=== PATIENT | male | born 1940 | race Caucasian/White ===

== ENCOUNTER 2019-03-06 17:12 | Observation (INO) | payer MEDICARE ==
[~2019-03-06] VITALS: Ht 190.5 cm; Wt 66.4 kg
--- NOTE | 2019-03-06 17:12 | NUR ---
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 CARDIAC, NIBP & SPO2 MONITORS IN PLACE.
[2019-03-06] MEDS ORDERED: SODIUM CHLORIDE FLUSH 10ML SYR IVF ONE (17:30)
[2019-03-06 17:47] LABS: BASOPHILS # (AUTO) 0.03 x10^3/uL (0-0.1); BASOPHILS % (AUTO) 0 % (0-1); EOSINOPHILS # (AUTO) 0.01 x10^3/uL (0-0.4); EOSINOPHILS % (AUTO) 0 % (1-7); LYMPHOCYTES # (AUTO) 1.11 x10^3/uL (1-3.4); LYMPHOCYTES % (AUTO) 13 % (22-44); MD NO; MEAN CORPUSCULAR HEMOGLOBIN 33.7 pg (27.5-34.5); MEAN CORPUSCULAR HGB CONC 33.4 g/dL (33.2-36.2); MEAN CORPUSCULAR VOLUME 101.1 fL (81-97); MEAN PLATELET VOLUME 8.3 fL (7.4-10.4); MONOCYTES # (AUTO) 0.56 x10^3/uL (0.2-0.8); MONOCYTES % (AUTO) 6 % (2-9); NEUTROPHILS # (AUTO) 7.14 x10^3/uL (1.8-6.8); NEUTROPHILS % (AUTO) 81 % (42-75); PLATELET COUNT 276 x10^3/uL (130-400); RED BLOOD COUNT 4.08 x10^6/uL (4.38-5.82); RED CELL DISTRIBUTION WIDTH 14.5 % (9.4-14.8)
[2019-03-06 17:56] LABS: INTERNATIONAL NORMALIZED RATIO 1.04 (0.93-1.1); PROTHROMBIN TIME 10.9 Seconds (9.6-11.5)
[2019-03-06 17:57] LABS: ALANINE AMINOTRANSFERASE 35 U/L (12-78); ALBUMIN 3.8 g/dL (3.4-5.0); ANION GAP 6 mmol/L (5-15); CALCIUM 9.2 mg/dL (8.5-10.1); CHLORIDE 101 mmol/L (98-107); CREATININE 0.97 mg/dL (0.7-1.3)
--- NOTE | 2019-03-06 18:00 | NUR ---
PT ON GURNEY AWAKE & WATCHING TV, RESPONDS APPROP TO STAFF, NAD, COMFORT MEASURES PROVIDED, CALL LIGHT WITHIN REACH. PT TO CT
[2019-03-06 18:01] LABS: ALKALINE PHOSPHATASE 113 U/L (45-117); BILIRUBIN,TOTAL 0.8 mg/dL (0.2-1.0); CREATINE KINASE, TOTAL 576 U/L (39-308); TOTAL PROTEIN 8.4 g/dL (6.4-8.2)
[2019-03-06 18:08] LABS: MICROSCOPIC INDICATED
[2019-03-06 18:09] LABS: CULTURE INDICATED? YES
[2019-03-06] MEDS ORDERED: ATORVASTATIN (18:15)
[2019-03-06] MEDS ORDERED: CALCIUM (18:15)
[2019-03-06] MEDS ORDERED: TRAZODONE (18:15)
--- NOTE | 2019-03-06 19:06 | NUR ---
REPORT GIVEN TO SAIMA
--- NOTE | 2019-03-06 19:15 | NUR ---
REPORT RECEIVED AND CARE ASSUMED. PT USING URINAL AT THIS TIME. NO S/S OF ACUTE DISTRESS. WILL ATTEMPT TO AMBULATE WHEN ABLE.
--- NOTE | 2019-03-06 19:20 | NUR ---
WANDA [phone]
--- NOTE | 2019-03-06 19:30 | NUR ---
PT UP TO BR WITH ASSIST. PT DOES APPEAR TO HAVE MILD DIFFICULTY. PT DOES HAVE PERIODS OF CONFUSION. PT STATES HE IS ATTEMPTING TO GET PLACED IN AN ASSISTED LIVING FACILITY. DISCUSSED WITH ERP THAT PT DOES NOT APPEAR SAFE TO D/C HOME BY SELF. HE DOES NOT HAVE ANYONE TO CARE FOR HIM.
--- NOTE | 2019-03-06 19:54 | NUR ---
ADMITTING MD AT BEDSIDE FOR EVAL.
[2019-03-06] MEDS ORDERED: CEFTRIAXONE PMX 1GM/50ML 50 ML IVPB ONE (20:00)
[2019-03-06] MEDS ORDERED: ONDANSETRON 2MG/ML, 2ML IVPush PRN (20:30)
[2019-03-06] MEDS ORDERED: ACETAMINOPHEN 325 MG TABLET PO PRN (20:30)
--- NOTE | 2019-03-06 20:30 | NUR ---
Walnut provided. Antibiotics to be started after blood cultures.
[2019-03-06] MEDS ORDERED: CEFTRIAXONE PMX 1GM/50ML 50 ML ONE (20:49)
[2019-03-06 22:32] VITALS: BP 113/69
[2019-03-07 02:33] VITALS: BP 106/67
[2019-03-07 06:21] LABS: BASOPHILS # (AUTO) 0.01 x10^3/uL (0-0.1); BASOPHILS % (AUTO) 0 % (0-1); EOSINOPHILS # (AUTO) 0.04 x10^3/uL (0-0.4); EOSINOPHILS % (AUTO) 1 % (1-7); LYMPHOCYTES # (AUTO) 1.48 x10^3/uL (1-3.4); LYMPHOCYTES % (AUTO) 20 % (22-44); MD NO; MEAN CORPUSCULAR HEMOGLOBIN 33.8 pg (27.5-34.5); MEAN CORPUSCULAR HGB CONC 33.4 g/dL (33.2-36.2); MEAN PLATELET VOLUME 8.7 fL (7.4-10.4); MONOCYTES # (AUTO) 0.65 x10^3/uL (0.2-0.8); MONOCYTES % (AUTO) 9 % (2-9); NEUTROPHILS # (AUTO) 5.13 x10^3/uL (1.8-6.8); NEUTROPHILS % (AUTO) 70 % (42-75); PLATELET COUNT 231 x10^3/uL (130-400); RED BLOOD COUNT 3.52 x10^6/uL (4.38-5.82); RED CELL DISTRIBUTION WIDTH 14.6 % (9.4-14.8)
[2019-03-07 06:28] LABS: ANION GAP 6 mmol/L (5-15); CALCIUM 8.3 mg/dL (8.5-10.1); CHLORIDE 109 mmol/L (98-107)
[2019-03-07 06:30] LABS: CREATININE 0.95 mg/dL (0.7-1.3)
[2019-03-07 07:13] VITALS: BP 108/55
[2019-03-07] MEDS ORDERED: SULF1TAB24 PO (08:49)
[2019-03-07] MEDS ORDERED: CEFTRIAXONE PMX 1GM/50ML 50 ML IV SCH (09:00)
[2019-03-07 12:31] VITALS: BP 90/57
== END 2019-03-07 15:34 | disposition home or self-care (01) ==
LOC: ED 20:16 → EDIP 20:21 → INTOOBSV 20:21 → 3N 21:26 → DCLOUNGE 03-07 15:19
PROVIDERS: ADMIT Internal Medicine; ATTEND Internal Medicine
DX: N39.0 Urinary tract infection, site not specified (principal); E78.5 Hyperlipidemia, unspecified; R29.6 Repeated falls; R26.89 Other abnormalities of gait and mobility; G93.89 Other specified disorders of brain; I49.1 Atrial premature depolarization; R53.1 Weakness; Z79.899 Other long term (current) drug therapy; Z91.81 History of falling
CPT/HCPCS: 36415; 70450; 71045; 80048; 80053; 81001; 82550; 83605; 83880; 85025; 85610; 85730; 87040; 87077; 87086; 87186; 93005; 96365; 96366; 97163; 99284; G0378; J0696; 99285

== ENCOUNTER 2019-03-13 15:36 | Inpatient (IN) | payer MEDICAID, MEDICARE ==
[~2019-03-13] VITALS: Ht 190.5 cm; Wt 73.8 kg
[~2019-03-13 15:36] MED LIST: ATORVASTATIN; CALCIUM; SULF1TAB24 PO; TRAZODONE
--- NOTE | 2019-03-13 15:52 | NUR ---
PT BIB [facility] FROM HOME FOR POSSIBLE FAILURE TO THRIVE. PER EMS, [facility]. FOLLOWS PT'S THEY HAVE PREVIOUSLY CARED FOR AND WHEN THEY CHECK ON HIM THEY REALIZED HE WAS NOT TAKING HIS ANTIBIOTICS THAT WERE PRESCRIBED S/P GLF AND UTI DIAGNOSIS. PT CONFUSED TO TIME BUT CALM. PT STATES HE IS UNABLE TO REALLY CARE FOR HIMSELF AT HOME. PT ATTACHED TO MONITOR, ROOM AIR, NAD, CALL LIGHT WITHIN REACH, SIDERAIL X [address] MED REC COMPLETED.
[2019-03-13] MEDS ORDERED: SODIUM CHLORIDE FLUSH 10ML SYR IVF ONE (16:30)
--- NOTE | 2019-03-13 16:40 | NUR ---
BREAK RN: SHIRT REMOVED AND GOWN ON. PIV START AND BLD DRAWN. DR. NORMAN AT BEDSIDE, PT ASSESSMENT POC DISCUSSED AND ORDERS REC'D.
[2019-03-13 16:51] LABS: BASOPHILS # (AUTO) 0.03 x10^3/uL (0-0.1); BASOPHILS % (AUTO) 1 % (0-1); EOSINOPHILS # (AUTO) 0.19 x10^3/uL (0-0.4); EOSINOPHILS % (AUTO) 3 % (1-7); LYMPHOCYTES # (AUTO) 1.74 x10^3/uL (1-3.4); LYMPHOCYTES % (AUTO) 29 % (22-44); MD NO; MEAN CORPUSCULAR HEMOGLOBIN 33.7 pg (27.5-34.5); MEAN CORPUSCULAR HGB CONC 33.3 g/dL (33.2-36.2); MEAN CORPUSCULAR VOLUME 101.4 fL (81-97); MEAN PLATELET VOLUME 8.3 fL (7.4-10.4); MONOCYTES % (AUTO) 8 % (2-9); NEUTROPHILS % (AUTO) 59 % (42-75); PLATELET COUNT 245 x10^3/uL (130-400); RED BLOOD COUNT 3.61 x10^6/uL (4.38-5.82); RED CELL DISTRIBUTION WIDTH 14.8 % (9.4-14.8)
[2019-03-13 17:00] LABS: INTERNATIONAL NORMALIZED RATIO 1.06 (0.93-1.1); PROTHROMBIN TIME 11.1 Seconds (9.6-11.5)
[2019-03-13 17:02] LABS: ANION GAP 5 mmol/L (5-15); CALCIUM 8.5 mg/dL (8.5-10.1); CHLORIDE 108 mmol/L (98-107); CREATININE 0.91 mg/dL (0.7-1.3)
[2019-03-13 17:03] LABS: ALANINE AMINOTRANSFERASE 32 U/L (12-78)
[2019-03-13 17:07] LABS: ALKALINE PHOSPHATASE 87 U/L (45-117); BILIRUBIN,TOTAL 0.3 mg/dL (0.2-1.0); TOTAL PROTEIN 6.7 g/dL (6.4-8.2)
[2019-03-13 17:13] LABS: T4 (THYROXINE) 5.7 mcg/dL (4.5-12.1)
[2019-03-13] MEDS ORDERED: ASPIRIN 81 MG TABLET CHEW PO ONE (17:30)
[2019-03-13] MEDS ORDERED: ASPIRIN 81 MG TABLET CHEW ONE (17:34)
--- NOTE | 2019-03-13 17:42 | NUR ---
PT MEDICATED, [facility] SENT.
[2019-03-13 18:20] LABS: MICROSCOPIC NOT IND
--- NOTE | 2019-03-13 19:08 | NUR ---
[facility] AT BEDSIDE FOR EXAM.
[2019-03-13] MEDS: HEPARIN 5,000 UNITS/ML, 1ML SQ SCH (19:24)
[2019-03-13] MEDS: SODIUM CHLORIDE FLUSH 10ML SYR IVF SCH (19:24)
--- NOTE | 2019-03-13 19:25 | NUR ---
THIS RN AT BEDSIDE TO DISCUSS SQ HEPARIN, PT REFUSED "I DON'T WANT TO BE POKED WITH ANY DAMN NEEDLES." PT EDUCATED AND STILL REFUSED.
[2019-03-13] MEDS ORDERED: ONDANSETRON ODT 4 MG PO PRN (19:30)
[2019-03-13] MEDS ORDERED: BISACODYL 10 MG SUPP PR PRN (19:30)
[2019-03-13] MEDS ORDERED: POLYETHYLENE GLYCOL 17 GM PACKET PO PRN (19:30)
--- NOTE | 2019-03-13 19:55 | NUR ---
PT GIVEN DINNER PER REQUEST.
--- NOTE | 2019-03-13 21:03 | NUR ---
REPORT GIVEN TO MARGAUX LLANES. CARE TRANSFERRED.
--- NOTE | 2019-03-13 21:05 | NUR ---
REPORT RECIEVED FROM MARGAUX PATINO. ASSUMED CARE OF PT. PT PROVIDED WITH WATER AND CHAPSTICK UPON REQUEST. DENIES ANY OTHER NEEDS AT THIS TIME
--- NOTE | 2019-03-13 22:16 | NUR ---
REPORT CALLED TO MARGAUX WEINSTEIN
[2019-03-13 23:56] LABS: TROPONIN I 0.038 ng/mL (0.000-0.045)
[2019-03-14] VITALS: BP 103/63
[2019-03-14] MEDS ORDERED: SULF-16 PO (00:33)
[2019-03-14] MEDS: HEPARIN 5,000 UNITS/ML, 1ML SQ SCH ×3 (02:58→19:50)
[2019-03-14 05:36] LABS: TROPONIN I 0.032 ng/mL (0.000-0.045)
[2019-03-14 07:20] VITALS: BP 92/64
[2019-03-14] MEDS: SENNA/DOCUSATE TABLET PO SCH (09:00)
[2019-03-14] MEDS: SODIUM CHLORIDE FLUSH 10ML SYR IVF SCH ×2 (09:57→19:51)
[2019-03-14 11:58] VITALS: BP 121/73
[2019-03-14 13:17] VITALS: BP 94/55
[2019-03-14 15:28] VITALS: BP 109/63
[2019-03-14] MEDS ORDERED: ATORVASTATIN 40 MG TABLET PO SCH (21:00)
[2019-03-14] MEDS: ACETAMINOPHEN 325 MG TABLET PO PRN (21:17)
[2019-03-14 21:24] VITALS: BP 108/66
[2019-03-15] VITALS: BP 121/73
[2019-03-15] MEDS: ACETAMINOPHEN 325 MG TABLET PO PRN ×2 (02:10→11:42)
[2019-03-15] MEDS: HEPARIN 5,000 UNITS/ML, 1ML SQ SCH ×2 (03:10→11:42)
[2019-03-15 06:44] VITALS: BP 115/75
[2019-03-15] MEDS: SENNA/DOCUSATE TABLET PO SCH (08:21)
[2019-03-15] MEDS: SODIUM CHLORIDE FLUSH 10ML SYR IVF SCH (08:21)
[2019-03-15] MEDS ORDERED: ASPIRIN 81 MG TABLET EC PO SCH (09:00)
[2019-03-15] MEDS ORDERED: ASPI81TA45 PO (12:07)
[2019-03-15] MEDS ORDERED: ATOR40TA78 PO (12:07)
[2019-03-15 14:01] VITALS: BP 99/64
[2019-04-09] MEDS ORDERED: LIDO700A20 TD (09:40)
[2019-04-09] MEDS ORDERED: SENN-193 PO (09:40)
[2019-04-09] MEDS ORDERED: HYDR-3240 PO (10:58)
[2019-04-09] MEDS ORDERED: METH750T87 PO (10:59)
== END 2019-03-15 18:00 | disposition home health service (06) | DRG 640 ==
LOC: EDBD → ED 17:25 → EDIP 18:48 → 3N 22:37
PROVIDERS: ADMIT Internal Medicine; ATTEND Family Medicine
DX: R62.7 Adult failure to thrive (principal); E43 Unspecified severe protein-calorie malnutrition; D53.9 Nutritional anemia, unspecified; R79.89 Other specified abnormal findings of blood chemistry; E78.5 Hyperlipidemia, unspecified; F01.50 Vascular dementia, unspecified severity, without behavioral disturbance, psychotic disturbance, mood disturbance, and anxiety; I25.10 Atherosclerotic heart disease of native coronary artery without angina pectoris; Z66 Do not resuscitate; Z79.82 Long term (current) use of aspirin; Z95.1 Presence of aortocoronary bypass graft; Z87.891 Personal history of nicotine dependence; Z68.20 Body mass index [BMI] 20.0-20.9, adult; I69.398 Other sequelae of cerebral infarction
CPT/HCPCS: 36415; 71045; 80053; 81003; 82607; 83605; 83735; 83880; 84436; 84443; 84484; 85025; 85610; 93005; 96372; 99285; G0378; J1644; 92523-GN